=== PATIENT | female | born 1990 | race Caucasian/White ===

== ENCOUNTER 2018-04-25 20:57 | Emergency (ER) | payer OTHER ==
[2018-04-25 21:28] LABS: URINE PH (Dip) POC 5.5 (5.0-8.5)
[2018-04-25 21:28] LABS: URINE BLOOD (Dip) POC 3+ (NEGATIVE); URINE GLUCOSE (Dip) POC Negative (NEGATIVE); URINE KETONES (Dip) POC Trace (NEGATIVE); URINE LEUKOCYTE EST (Dip) POC 2+ (NEGATIVE); URINE NITRITE (Dip) POC Negative (NEGATIVE); URINE TOTAL PROTEIN POC 2+ (NEGATIVE)
== END 2018-04-25 22:15 | disposition home or self-care (01) ==
LOC: FTE 20:57
DX: N39.0 Urinary tract infection, site not specified (principal)
CPT/HCPCS: 81003; 81025; 87086; 87591; 99283

== ENCOUNTER 2018-06-29 00:23 | Emergency (ER) | payer OTHER ==
[2018-06-29] MEDS: HYDROCODONE/APAP (5/325) TAB PO (02:11)
== END 2018-06-29 04:00 | disposition home or self-care (01) ==
LOC: FTE 00:23
DX: S20.212A Contusion of left front wall of thorax, initial encounter (principal); Y04.0XXA Assault by unarmed brawl or fight, initial encounter; Y92.9 Unspecified place or not applicable
CPT/HCPCS: 71100; 81025; 99283-25

== ENCOUNTER 2018-07-11 15:46 | Emergency (ER) | payer OTHER ==
[2018-07-11] MEDS: LORAZEPAM 1 MG TAB PO (16:28)
[2018-07-11 16:30] LABS: URINE BLOOD (Dip) POC Trace-intact (NEGATIVE); URINE GLUCOSE (Dip) POC Negative (NEGATIVE); URINE KETONES (Dip) POC Negative (NEGATIVE); URINE LEUKOCYTE EST (Dip) POC Negative (NEGATIVE); URINE NITRITE (Dip) POC Negative (NEGATIVE); URINE TOTAL PROTEIN POC Trace (NEGATIVE)
[2018-07-11 16:30] LABS: URINE PH (Dip) POC 7.5 (5.0-8.5)
== END 2018-07-11 17:31 | disposition home or self-care (01) ==
LOC: FTE 15:46
DX: F41.9 Anxiety disorder, unspecified (principal); R11.0 Nausea; R42 Dizziness and giddiness
CPT/HCPCS: 81003; 81025; 93005; 99283-25

== ENCOUNTER 2018-08-05 09:00 | Emergency (ER) | payer OTHER ==
[2018-08-05 10:30] LABS: ADD MAN DIFF? NO
[2018-08-05 10:34] LABS: BASOPHILS % 0.5 % (0.0-2.0); EOSINOPHILS % 0.5 % (0.0-7.0); HEMATOCRIT 40.5 % (37.0-47.0); LYMPHOCYTES # 1.3 10^3/ul (0.8-2.9); LYMPHOCYTES % 18.9 % (15.0-51.0); MEAN CORPUSCULAR HEMOGLOBIN 27.5 pg (29.0-33.0); MEAN CORPUSCULAR HGB CONC 32.1 g/dl (32.0-37.0); MEAN CORPUSCULAR VOLUME 85.6 fl (82.0-101.0); MEAN PLATELET VOLUME 10.4 fl (7.4-10.4); MONOCYTE # 0.3 10^3/ul (0.3-0.9); MONOCYTES % 4.8 % (0.0-11.0); NEUTROPHILS % 74.8 % (39.0-77.0); PLATELET COUNT 314 10^3/UL (140-415); RED BLOOD COUNT 4.73 10^6/ul (4.20-5.40); RED CELL DISTRIBUTION WIDTH 14.1 % (11.5-14.5)
[2018-08-05 10:34] LABS: WHITE BLOOD COUNT 6.7 10^3/ul (4.8-10.8)
[2018-08-05 10:40] LABS: ADD UMIC YES; UR ASCORBIC ACID NEGATIVE (NEGATIVE); UR BILIRUBIN (Dip) NEGATIVE (NEGATIVE); UR BLOOD (Dip) 1+ mg/dL (NEGATIVE); UR CLARITY CLEAR (CLEAR); UR COLOR STRAW (YELLOW); UR GLUCOSE (Dip) NEGATIVE (NEGATIVE); UR KETONES (Dip) NEGATIVE (NEGATIVE); UR LEUKOCYTE ESTERASE (Dip) NEGATIVE Leu/ul (NEGATIVE); UR NITRITE (Dip) NEGATIVE (NEGATIVE); UR RBC 1 /HPF (0-5); UR SPECIFIC GRAVITY (Dip) 1.009 (1.003-1.030); UR SQUAMOUS EPITHELIAL CELL FEW /HPF (FEW); UR TOTAL PROTEIN (Dip) NEGATIVE (NEGATIVE); UR UROBILINOGEN (Dip) NEGATIVE (NEGATIVE); UR WBC 2 /HPF (0-5)
== END 2018-08-05 11:05 | disposition home or self-care (01) ==
LOC: FTE 09:00
DX: F41.1 Generalized anxiety disorder (principal)
CPT/HCPCS: 81001; 81025; 85025; 93005; 99284-25

== ENCOUNTER 2018-09-14 21:05 | Emergency (ER) | payer OTHER | END 2018-09-14 22:22 | disposition home or self-care (01) | LOC: FTE 21:05 | DX: Z71.1 Person with feared health complaint in whom no diagnosis is made (principal) | CPT/HCPCS: 99282; Z7502 ==

== ENCOUNTER 2019-02-26 00:34 | Emergency (ER) | payer SELFPAY, OTHER | END 2019-02-26 06:35 | disposition left against medical advice (07) | LOC: FTE 06:35 | DX: Z53.21 Procedure and treatment not carried out due to patient leaving prior to being seen by health care provider (principal) ==